=== PATIENT | male | born 1940 | race Caucasian/White ===

== ENCOUNTER → 2016-11-06 | Outpatient (CLI) | payer MEDICARE, OTHER ==
[2016-11-06 08:30] LABS: BASOPHILS % (AUTO) 1 % (0-2); EOSINOPHILS # (AUTO) 0.2 10^3uL; EOSINOPHILS % (AUTO) 3 % (0-4); LYMPHOCYTES # (AUTO) 2.3 X10^3; MEAN CORPUSCULAR HEMOGLOBIN 27.6 PG (26.0-34.0); MEAN CORPUSCULAR HGB CONC 33.3 g/dL (31.0-37.0); MEAN CORPUSCULAR VOLUME 83 FL (80-100); MEAN PLATELET VOLUME 9.9 FL (6.0-9.5); MONOCYTES # (AUTO) 0.7 X10^3; MONOCYTES % (AUTO) 9 % (3-11); NEUTROPHILS # (AUTO) 4.3 X10^3; NEUTROPHILS % (AUTO) 57 % (51-67); PLATELET COUNT 233 10^3uL (150-450); WHITE BLOOD COUNT 7.47 10^3uL (4.0-11.0)
[2016-11-06 08:58] LABS: ALBUMIN 4.1 g/dL (3.4-5.0); ANION GAP 15.4 MEQ/L (3-15); CALCULATED IONIZED CALCIUM 4.1 mg/dL (3.8-4.6)
== END ==
LOC: LAB 08:15
PROVIDERS: ATTEND Family Medicine
DX: E78.2 Mixed hyperlipidemia (principal); R79.89 Other specified abnormal findings of blood chemistry; D50.8 Other iron deficiency anemias; N41.9 Inflammatory disease of prostate, unspecified; E03.4 Atrophy of thyroid (acquired); M81.0 Age-related osteoporosis without current pathological fracture; D51.0 Vitamin B12 deficiency anemia due to intrinsic factor deficiency
CPT/HCPCS: 36415; 80053; 80061; 82306; 82607; 84153; 84436; 84443; 85025

== ENCOUNTER → 2016-11-07 | Outpatient (CLI) | payer MEDICARE, OTHER | LOC: RAD 13:11 | PROVIDERS: ATTEND Family Medicine | DX: I61.0 Nontraumatic intracerebral hemorrhage in hemisphere, subcortical (principal) | CPT/HCPCS: 70450 ==

== ENCOUNTER → 2016-11-24 | Outpatient (CLI) | payer MEDICARE, OTHER | LOC: EMS 15:45 | PROVIDERS: ATTEND Anesthesiology | DX: I62.9 Nontraumatic intracranial hemorrhage, unspecified (principal) ==

== ENCOUNTER → 2016-11-24 | Emergency (ER) | payer MEDICARE, OTHER ==
[~2016-11-24] VITALS: Ht 170.2 cm; Wt 63.6 kg
[~2016-11-24] MED LIST: NICARDIPINE HCL IV PRN; SODIUM CHLORIDE FLUSH 10 ML SYR IV PRN; SODIUM CHLORIDE FLUSH 3 ML SYR IV PRN; SODIUM CHLORIDE IV PRN
[2016-11-24 14:13] VITALS: BP 167/74
[2016-11-24 15:22] LABS: BASOPHILS % (AUTO) 1 % (0-2); EOSINOPHILS # (AUTO) 0.2 10^3uL; EOSINOPHILS % (AUTO) 2 % (0-4); LYMPHOCYTES # (AUTO) 1.8 X10^3; MEAN CORPUSCULAR HGB CONC 32.4 g/dL (31.0-37.0); MEAN CORPUSCULAR VOLUME 83 FL (80-100); MEAN PLATELET VOLUME 10.8 FL (6.0-9.5); MONOCYTES # (AUTO) 0.6 X10^3; MONOCYTES % (AUTO) 9 % (3-11); NEUTROPHILS # (AUTO) 4.6 X10^3; NEUTROPHILS % (AUTO) 64 % (51-67); PLATELET COUNT 237 10^3uL (150-450); WHITE BLOOD COUNT 7.26 10^3uL (4.0-11.0)
[2016-11-24 15:35] LABS: MEAN CORPUSCULAR HEMOGLOBIN 26.8 PG (26.0-34.0)
[2016-11-24 15:46] LABS: ALKALINE PHOSPHATASE 81 U/L (38-126); ANION GAP 13.6 MEQ/L (3-15); BUN/CREATININE RATIO 17 (10-20); CALCULATED IONIZED CALCIUM 3.9 mg/dL (3.8-4.6); CREATINE KINASE 45 U/L (55-170)
[2016-11-24 16:22] LABS: ERYTHROCYTE SEDIMENTATION RT* 8 mm/hr (0-19)
== END | disposition home or self-care (01) ==
LOC: EDUNIT# 13:59 → ED 14:00
DX: I61.0 Nontraumatic intracerebral hemorrhage in hemisphere, subcortical (principal); I61.1 Nontraumatic intracerebral hemorrhage in hemisphere, cortical; H54.7 Unspecified visual loss; I10 Essential (primary) hypertension
CPT/HCPCS: 36415; 70450; 71010; 80053; 82550; 84484; 85025; 85610; 85652; 85730; 86140; 93005; 93010; 99285; 99291

== ENCOUNTER 2017-01-08 10:00 | Outpatient (RCR) | payer MEDICARE, OTHER ==
--- NOTE | 2016-12-11 11:02 | PT/OT/ST INITIAL EVALUATION ---
Department of Health and Human Services Form Approved [facility] Care Financing Administration OMB No. [id number] PLAN OF CARE/ASSESSMENT FOR OUTPATIENT REHABILITATION (Complete for Initial Claims Only) 1. PATIENT'S NAME Jaden Mart 2. ACC # [id number] 3. [id number] 4. PROVIDER NO. [id number] 5. TYPE: SPT 6. PRIOR HOSPITALIZATION None 7. PRIMARY DX Acute intracerebral hemorrhage 8. SECONDARY DX Cognitive communication deficit and expressive aphasia. 9. ONSET DATE November 24, 2016 10. REFERRAL DATE November 11. SOC. DATE December 03, 2016 12. TIME OF EVAL 14:[address] Dain Carbajal 13. CHARGES/UNITS NA 14. G CODES Currently the patient is at a [id number] 69 to 79% impaired. Goal is for [id number] 1-19% impaired 15. PRIOR LEVEL OF FUNCTION; PERTINENT HISTORY (Prior therapy results, reason for referral.) S: Prior to therapy, the patient consented to today's evaluation and treatment. The patient is a 76-year-old male referred to speech therapy by Dr. Carbajal to address cognitive communication deficits and expressive aphasia. The patient rates overall and general health as good. The patient's accompanied him to this visit and gave all information. Mechanism of injury: The patient's states on November 24, the patient woke up and had breakfast and was having difficulty seeing his plate. He has had past left neglect in the past, but he was unable to see his plate at all. At this time she knew something was not right and she took him to the emergency room in [place]. They then took him by ambulance to [facility] in [place], which they diagnosed him with an intracerebral hemorrhage. He stayed at [facility] from November 24 to November 27 and received PT, OT and speech at that time. Primary Complaint: Their complaint now is that the patient continues to have worsened left neglect, expressive, and receptive aphasia and difficulties with memory. Prior, and current level of function: Prior to this the patient did have left neglect; however, it is now worse. He cannot identify objects. He has a very difficult time seeing them, and when he does see the objects, he cannot say what they are until somebody describes the object. He now has a very difficult time with memory and orientation, and difficulty understanding. Therapy History: He did receive speech therapy after his first stroke, which was September 08, 2014. Social history: He lives at home with his . Aggravating factors: Include when he is tired. Diagnostic tests: He has had no diagnostic testing. Past medical history: The patient's reports the patient is very healthy. The only past medical history he has is the first stroke and now this stroke. Past surgical history: The only surgery she reports for him is brain surgery after hemorrhagic stroke in August 2014. Current medications: She reports he is on no medications. Patient's Goal: The 's goal for therapy is for the patient to be able to name objects and remember things better. 16. INITIAL ASSESSMENT/SAFETY PRECAUTIONS/MEDICAL COMPLICATIONS (Level of function at start of care. Be specific, use objective measures, list problems.) O: ASSESSMENT: Upon assessment, the patient was given the Yuan Cognitive Assessment (MOCA) and He scored 5/30. For visuospatial executive he 1 out of 5. For naming he scored 0 out of 3. For attention he scored 4 out of 6. For language he scored 1 out of 3. For abstraction he scored 1 out of 2. For delayed recall he scored 0 out of 5. For orientation he scored 1 out of 6. He was then given the Ross Information Processing Assessment Geriatric version 2nd addition, (RIPA G2). On immediate memory, he scored a raw score of 20, which put him in the 7th percentile rank with a moderate degree of severity. Temporal orientation raw score 22, 3rd percentile rank, moderate degree of severity, spatial orientation 36 raw score, 7th percentile rank, moderate severity, general information 36 raw score, 10th percentile rank, mild severity, situational knowledge, 38 raw score, 16th percentile rank mild severity, categorical vocabulary 28 raw score, 4th percentile rank moderate severity, listening comprehension 30 raw score, 7th percentile rank, moderate severity. The patient had a very difficult time with comprehension and understanding what was being asked of him to do for different activities. He was given a list of objects to name and it was very difficult for him to see the objects and then when he did see them, he was very slow to name them. He could name them after being described what the object was, but could not initially name any of the objects of his own. He needed moderate to max assist to name these objects. The patient presents with a moderate to severe expressive and receptive aphasia, as well as cognitive communication deficit. The patient's reports he does not remember many things and this is very difficult at home. TODAY'S TREATMENT: Included working on orientation and describing things for the patient and to work on at home for orientation to keep the patient oriented each day. Goals: 1. Patient to be oriented to the month, and city independently. 2. Patient to name objects with 50% accuracy. 3. Patient to name 10 objects in a given category within 1 one minute. 4. Patient to complete 2 word delayed memory independently. 17. INITIAL POC: (Specify procedures, modalities, short and bed bug exterminator goals) A: PROGNOSIS: Due to a personal health rating of good, the patient does have a good prognosis for therapy. INFORMED CONSENT: The diagnosis, prognosis, treatment plan, risks and expected outcomes were discussed with the patient and the , and they agreed to today's established plan of care. P: Plan to treat the patient 3 times a week for 4 weeks in order to address expressive aphasia and cognitive communication deficits secondary to CVA. Therapy to include cognitive communication activities, as well as naming comprehension and expressive aphasia activities. 18. FREQUENCY 3 times a week 19. DURATION 4 weeks 20. FUNCTIONAL LEVEL (End of claim period) 21. PHYSICIAN SIGNATURE ? ON FILE OR ENTER HERE: 22. DATE: I certify the need for these services furnished under this plan of care and if for partial hospitalization. 23. CERTIFICATION FROM THROUGH FORM [facility]-700
--- NOTE | 2016-12-12 08:31 | PT/OT/ST INITIAL EVALUATION ---
Department of Health and Human Services Form Approved [facility] Care Financing Administration OMB No. [id number] PLAN OF CARE/ASSESSMENT FOR OUTPATIENT REHABILITATION (Complete for Initial Claims Only) 1. PATIENT'S NAME Jaden Mart 2. ACC # [id number] [facility]. [id number] 4. PROVIDER NO. [id number] 5. TYPE: OT 6. PRIOR HOSPITALIZATION 11/24/16 7. PRIMARY DX I61.9 -nontraumatic intracerebral hemorrhage, unspecified. 8. TREATMENT DX Other localized visual field deficit, stiffness of left wrist, lack of coordination, attention and concentration deficit. 9. ONSET DATE 11/24/2016 10. REFERRAL DATE 11/27/2016 11. SOC. DATE 12/05/2016 12. TIME OF EVAL 1:05 p.m. to 2:01 p.m. 12. REFERRING PHYSICIAN Dr. Dain Carbajal 13. CHARGES/UNITS 45 evaluation, [id number] complexity 11 therapeutic activity 14. G CODES [id number] 15. PRIOR LEVEL OF FUNCTION; PERTINENT HISTORY (Prior therapy results, reason for referral.) S: The patient is a 76-year-old male referred by Dr. Dain Carbajal to address occupational concerns secondary to a CVA. Description/mechanism of injury: Patient's provided history this date. The reports the patient experienced a hemorrhagic stroke 2 years ago affecting his left side. The reports visual changes, including left neglect. The patient experienced another CVA on 11/24/2016, with stroke affecting vision and thought processing. Home set up: The patient and spouse live in a one-level home with a basement. The reports 2 steps and a railing to enter the home. The patient has a walk-in shower with grab bars and a shower bench. The patient uses a cane for walking in the home and a wheelchair for transportation within the community. Prior level of function: Prior to onset, reports the patient receiving assistance with all self-care tasks including getting dressed, toileting and bathing. The patient was stand-by assistance for functional transfers. Current level of function and deficits: reports difficulties with vision and thought processing. reports the patient does not always see the left side of his food when eating. During functional mobility, pt has difficulty seeing where he is walking requiring consistent cueing and supervision. Additionally, reports the patient will not look up during conversations and has difficulty with eye contact. In regards to thought processing, reports delayed response to questions and has difficulty with naming objects, but knows what you do with the item and can describe it. Pt is a retired elias. Pt enjoys being with friends and riding the stationary bike. Pain level and location: 0/10 pain. Personal health rating: Good. Diagnostic tests: The patient has completed 3 brain scans within the last few months. PMH (PT, OT, Hospitalizations). Past medical history of stroke. The patient has completed previous therapies in acute care at [facility] and has completed previous outpatient therapies of physical therapy, occupational therapy and speech therapy for previous stroke. Current medications: Cholesterol medications. No medications to complicate therapy. Patient's Goal: The patient's and spouses goals are to learn strategies and ways to help with visual deficits and help with thought processing. 16. INITIAL ASSESSMENT/SAFETY PRECAUTIONS/MEDICAL COMPLICATIONS (Level of function at start of care. Be specific, use objective measures, list problems.) O: APPEARANCE AND OBSERVATION: The patient appeared to his initial occupational therapy evaluation this date with his . Upon observation the patient was noted to demonstrate some difficulty with maintaining eye contact during conversation with therapist. With questions, it was noted the patient demonstrated some delayed processing with answering. VISION TESTINS: With H test visual screening, the patient demonstrated minimal saccadic movement when looking down. The patient was able to demonstrate bilateral eyes moving in unison during test. Noted, during convergence test, the patient demonstrated the inability to converge eyes. With peripheral testing, the patient demonstrated limited peripheral vision on left side compared to right. CLOCK DRAWING TEST: The patient mary all numbers on the right side, indicating visual deficits. Noted- the patient required increased time to complete task. OUTCOME ASSESSMENTS: QuickDASH: The QuickDASH was completed this date, which is a standardized assessment with a score of 56.82. A score of 0 indicates no difficulties or limitations with daily activities or leisure tasks. SHORT BLESSED: The Short Blessed was completed this date to assess pt's memory and concentration. Pt scored a 12. Pt was unable to respond correctly to any items on the assessment. The MVPT was attempted this date with the patient demonstrating difficulty participating in activity. The therapist was not able to score this assessment this date due to difficulties understanding directions of the assessment. COMPLEXITY LEVEL: The patient presents with decreased attention and concentration, visual deficits and delayed thought processing, which impacts pt's ability to complete self care tasks in a safe manner. Pt presents with co-morbidities affecting occupational performance. Required moderate modification of tasks and moderate verbal cueing during assessment, placing pt at a moderate complexity level. TODAY'S TREATMENT: Included education about the occupational therapy and the occupational therapy process. Additionally provided education to patient and spouse on efficient scanning patterns. Provided activities to work on scanning patterns at home. Additionally provided compensatory strategies for ways to improve vision and safety during daily activities and functional mobility. 17. INITIAL POC: (Specify procedures, modalities, short and prison goals) A: The patient presents to occupational therapy with inefficient visual scanning patterns, visual deficits and difficulties with attention and concentration secondary to a diagnosis of CVA. The patient would benefit from skilled occupational therapy services to improve visual scanning patterns and provide strategies for visual deficits for increased safety and independence with daily activities. Additionally to provide education and recommendations on ways to improve attention and thought processing. PROBLEMS/IMPAIRMENTS/FUNCTIONAL LOSS: Include visual deficits, decreased memory and concentration, which impact the patient's ability to complete all daily activities independently requiring assistance and safety cueing from spouse. INTENDED OUTCOMES: Include address visual and concentration deficits with design of therapeutic activities and provide strategies and recommendations on ways to compensate for vision deficits to allow for improved performance at home during daily activities. REHAB POTENTIAL/PROGNOSIS: The patient is expected to have a good prognosis based on consistent therapy assistance and completion of home exercise program and following therapist's recommendations. CONTRAINDICATIONS, PRECAUTIONS AND OBSTACLES TO DELIVERY OF CARE: None. INFORMED CONSENT: The occupational therapy discussed the OT diagnosis, prognosis, treatment plan, risks and expected outcome with the patient. The patient and family agreed to the OT plan of care this date. SHORT TERM GOALS X3 WEEKS: 1. The patient and spouse will verbalize and demonstrate compliance with home exercise program. 2. Pt will demonstrate use of effective visual scanning skills with ADL tasks 3/5 times with moderate verbal cues. CARE HOME GOALS X6 WEEKS: 1. The patient will demonstrate ability to demonstrate an efficient scanning pattern during functional mobility with minimal verbal cues to improve safety within the home. 2. The patient will demonstrate ability to identify 8/10 items/objects with use of visual compensatory strategies and minimal verbal cueing to improve performance during mealtime. P: Plan to treat the patient 2 times a week for 6 weeks in order to address visual deficits and attention concerns. Treatment is to include therapeutic exercise, active range of motion and passive range of motion, therapeutic activities, ADL/self-care, neuro re-education, patient education/home exercise program and other treatments as indicated. 18. FREQUENCY 2 times a week 19. DURATION 6 weeks 20. FUNCTIONAL LEVEL (End of claim period) 21. PHYSICIAN SIGNATURE ? ON FILE OR ENTER HERE: 22. DATE: I certify the need for these services furnished under this plan of care and if for partial hospitalization. 23. CERTIFICATION FROM THROUGH FORM FA-700
--- NOTE | 2016-12-12 14:49 | PT/OT/ST INITIAL EVALUATION ---
Department of Health and Human Services Form Approved [facility] Care Financing Administration OMB No. [id number] PLAN OF CARE/ASSESSMENT FOR OUTPATIENT REHABILITATION (Complete for Initial Claims Only) 1. PATIENT'S NAME Jaden Mart 2. ACC # [id number] [id number] 4. PROVIDER NO. [id number] 5. TYPE: PT 6. PRIOR HOSPITALIZATION NA 7. PRIMARY DX Status post acute intracerebral hemorrhage 8. SECONDARY DX Difficulty walking 9. ONSET DATE Approximately 2 weeks ago. 10. REFERRAL DATE NA 11. SOC. DATE 12/04/2016 12. TIME OF EVAL 1:05 p.m. 12. REFERRING PHYSICIAN Dr. Dain Carbajal 13. CHARGES/UNITS NA 14. G CODES [id number] 15. PRIOR LEVEL OF FUNCTION; PERTINENT HISTORY (Prior therapy results, reason for referral.) S: Prior to therapy, the patient and his did consent to today's evaluation and treatment. The patient is a 76-year-old male referred to physical therapy by Dr. Carbajal to address status post intracerebral hemorrhage. Personal health rating: The patient and his do rate his overall and general health as good. Primary Complaint: The patient's did provide most of the history today with the reporting a significant stroke 2 years ago, which was hemorrhagic in nature. She does state he did get return of function after this and has been working out at home regularly with friends and performing activities with her at home as well. He was walking with a cane with standby to contact guard assist. does state that she has noticed since this new CVA that he does have significant cognitive involvement and slow thought processes and his ambulation has significantly slowed and he is less steady on his feet. The patient's does state that he does have left neglect and does not see out of his left eye as he is significantly low vision. The patient's has noticed since the stroke his vision has significantly decreased overall. The does state that he has had no falls. There are 2 steps to enter their house with a rail. The states he has no significant difficulty with this. She does state that he does frequently scissor with gait. The additionally states that they have not had his vision rechecked at this time. Prior level of function: Includes the patient being able to ambulate and workout with friend's assistance riding a stationary bike 5 miles per day with his left foot strapped onto the pedal. Current level of function: Currently the patient is unable to bike. He has had a significantly slowed pace with ambulation and has decreased balance when he is walking. Therapy History: Includes PT in the past with good results. Obstacles to delivery of care: Do include CVA. Pain level: The patient denies reports of pain. Past medical history: Once again, does include CVA. None other significant is reported. Current medications: No prescription medications are reported. Patient's Goal: The patient and his 's goal for physical therapy is to have faster pace with ambulation and to be able to scan his environment so that he can see obstacles coming. Their goal is also to be better by the end of December when they have a cruise planned. 16. INITIAL ASSESSMENT/SAFETY PRECAUTIONS/MEDICAL COMPLICATIONS (Level of function at start of care. Be specific, use objective measures, list problems.) O: APPEARANCE AND OBSERVATION: The patient presents to physical therapy via a transport wheelchair. The patient is able to ambulate with a single-point cane, but does have left neglect and significant path deviation to the right. The patient does require maximal verbal cueing in order to keep a straight path. Sit to stand transitions are performed with minimal to contact guard assistance. The patient is independent with bed mobility both to the left and right rolling side to side. The patient is additionally requires minimal to contact guard assist for supine to sit and sit to supine transfers. PALPATION: With palpation the patient did have significantly increased tone and tightness throughout the left Achilles tendon and hamstring. SPECIAL TESTS: Include the patient unable to perform a balance activity with narrow base of support or tandem stance. The patient had a TUG (timed get up and go) of 1 minute 7 seconds. RANGE OF MOTION/FLEXIBILITY: Dorsiflexion on the right is lacking 35 degrees from neutral, on the left lacking 15 degrees. Hamstring flexibility measured at the popliteal angle is 130 degrees on the right and 118 degrees on the left. STRENGTH: Throughout the right lower extremity is grossly 4+/5 throughout with the exception of hip internal and external rotation which tested 4/5. Throughout the left lower extremity is grossly 4+/5 with the exception of ankle dorsiflexion, which is 4-/5 and hip internal and external rotation, which is 4/5. TODAY'S TREATMENT: Following the initial evaluation manual therapy techniques were performed throughout the left lower extremity to facilitate flexibility. Therapeutic exercise was then performed and issued as a home exercise program with stretching for to perform. Gait training was then performed. 17. INITIAL POC: (Specify procedures, modalities, short and moth exterminator goals) A: The patient presents to physical therapy with diagnoses of status post intracerebral hemorrhage with resultant decreased bilateral ankle flexibility, decreased gait, decreased path scanning and decreased safety with ambulation. PROGNOSIS: This patient does have a good prognosis with regular therapy attendance and compliance with home exercise program. This patient is expected to benefit from physical therapy services in order to have increased active range of motion, increased gait, increased safety awareness to return to safe home mobility. OUTCOME ASSESSMENT: TUG, which scored 1 minute 7 seconds. INFORMED CONSENT: The diagnosis, prognosis, treatment plan, risks and expected outcomes were discussed with the patient and his and the patient and his did agree to today's established plan of care. SHORT TERM GOALS: 1. The patient and to be independent and compliant with home exercise program in 1 week. 2. The patient with bilateral dorsiflexion to at least neutral to at least 0 degrees to allow for safe community mobility with single-point cane with contact guard assist in 3 weeks. 3. The patient with a TUG score no more than 30 seconds in 6 weeks to allow decreased fall risk and safety with ambulation for traveling. P: Plan to treat the patient 2 times per week for 6 weeks in order to address status post intracerebral hemorrhage. Therapeutic treatments to include manual therapy techniques as indicated. Therapeutic exercise targeting active range of motion, strengthening, gait training, balance proprioceptive training, neuromuscular reeducation, and patient education in home exercise program to be advanced as warranted. 18. FREQUENCY 2 times per week 19. DURATION 6 weeks 20. FUNCTIONAL LEVEL (End of claim period) 21. PHYSICIAN SIGNATURE ? ON FILE OR ENTER HERE: 22. DATE: I certify the need for these services furnished under this plan of care and if for partial hospitalization. 23. CERTIFICATION FROM THROUGH FORM FA-700
[~2017-01-08 10:00] MED LIST changes: +AC325T PO; +AMLO10TA82 PO; +ASPI-586 PO; +CALC600T12 PO; +ERGO400C PO; +LEVO750T39 PO; +MAGN296S PO; +MELO7.5T PO; +METO25TA60 PO; +MULT-55 PO; -NICARDIPINE HCL IV PRN; +OMEP20CA6 PO; -SODIUM CHLORIDE FLUSH 10 ML SYR IV PRN; -SODIUM CHLORIDE FLUSH 3 ML SYR IV PRN; -SODIUM CHLORIDE IV PRN
== END 2017-01-22 08:46 | disposition home or self-care (01) ==
LOC: PT 10:00
PROVIDERS: ATTEND Family Medicine
DX: I61.8 Other nontraumatic intracerebral hemorrhage (principal); I69.120 Aphasia following nontraumatic intracerebral hemorrhage
CPT/HCPCS: 92507; 92523; 97110; 97112; 97116; 97140; 97162; 97166; 97530; G8978; G8979; G8980; G8993; G8994; G9165; G9166; G9167; G9168; G9169; G9170